=== PATIENT | female | born 1955 | race Caucasian/White ===

== ENCOUNTER 2019-07-13 07:45 | Emergency (ER) | payer OTHER ==
[~2019-07-13] VITALS: Ht 162.6 cm; Wt 57.2 kg
[~2019-07-13 07:45] MED LIST: SYN.1 PO
[2019-07-13 07:47] VITALS: BP 149/83
--- NOTE | 2019-07-13 07:52 | NUR ---
PT. AMBULATED TO BED 12
--- NOTE | 2019-07-13 07:57 | NUR ---
64 Y/O FEMALE C/O HEADACHE SINCE THE MIDDLE OF THE NIGHT 6/10 PAIN. PT TOOK TYLENOL AT 4AM THIS MORNING WITH PAIN RELIEF. PT DENIES ANY TRAUMA. DENIES N/V/D; SKIN IS PINK/WARM/DRY; AAOX4 WITH EVEN AND STEADY GAIT; PT DENIES ANY FEVER, CP, SOB, OR COUGH AT THIS TIME; VSS; PATIENT POSITIONED FOR COMFORT; HOB ELEVATED; BEDRAILS UP X1; BED DOWN AND WHEELS LOCKED. MEDICAL HX:THYROID ISSUE NKA
--- NOTE | 2019-07-13 08:19 | NUR ---
DR HERNANDEZ EVALUATING PT AT BEDSIDE
[2019-07-13] MEDS ORDERED: KETOROLAC 60 MG/2 ML VIAL IM ONE (08:30)
--- NOTE | 2019-07-13 08:35 | NUR ---
PT TAKEN TO CT VIA WHEELCHAIR
--- NOTE | 2019-07-13 08:44 | NUR ---
PT RETURNED FROM CT VIA WHEELCHAIR. PT IS STABLE.VSS. WILL CONTINUE TO MONITOR.
--- NOTE | 2019-07-13 09:34 | NUR ---
PT SITTING UP IN BED WITH FEET ON FLOOR, 1 SIDERAIL UP, BED LOW AND LOCKED,VSS,WILL CONTINUE TO MONITOR.
[2019-07-13 09:41] VITALS: BP 108/77
== END 2019-07-13 09:41 | disposition home or self-care (01) ==
LOC: MED 07:45
DX: R51 Headache (principal); Z79.899 Other long term (current) drug therapy; Z85.9 Personal history of malignant neoplasm, unspecified
CPT/HCPCS: 70450; 96372; 99284; J1885

== ENCOUNTER 2021-07-10 07:01 | Emergency (ER) | payer OTHER ==
[~2021-07-10] VITALS: Ht 154.9 cm; Wt 49.9 kg
[2021-07-10 07:06] VITALS: BP 140/94
--- NOTE | 2021-07-10 07:11 | NUR ---
PT AMBULATED TO ER BED 12 WITH A STEDY GAIT.
--- NOTE | 2021-07-10 07:20 | NUR ---
66 Y/O FEMALE C/O BILATERAL EAR PAIN 1010 DESCRIBES PRESSURE X1WEEK. DENIES DISCHARGE. +TINNITUS. DENIES FEVER/CHILLS. DENIES N/V/D. PMH: DM, THYROID SX: THYROIDECTOMY NKA
--- NOTE | 2021-07-10 07:39 | NUR ---
IS AT PT BEDSIDE FOR FURTHER EVALUATION
[2021-07-10] MEDS: KETOROLAC 30 MG/ML VIAL IM ONE (07:56)
[2021-07-10] MEDS: LORazepam 0.5 MG TAB PO ONE (07:57)
[2021-07-10 08:49] VITALS: BP 121/82
--- NOTE | 2021-07-10 08:50 | NUR ---
PT RESTING IN BED CALM AND COMFORTABLE, VSS, WILL CONTINUE TO MONITOR.
[2021-07-10] MEDS ORDERED: NAPR-54 PO (09:08)
--- NOTE | 2021-07-10 09:25 | NUR ---
Patient discharged with v/s stable. Written and verbal after care instructions ABOUT EARACHE given and explained. Patient alert, oriented and verbalized understanding of instructions. Ambulatory with steady gait. All questions addressed prior to discharge. ID band removed. Patient advised to follow up with PMD. Rx of NAPROXEN given. Patient educated on indication of medication including possible reaction and side effects. Opportunity to ask questions provided and answered.
== END 2021-07-10 09:25 | disposition home or self-care (01) ==
LOC: MED 07:01
DX: H92.03 Otalgia, bilateral (principal); E11.9 Type 2 diabetes mellitus without complications; E07.9 Disorder of thyroid, unspecified; Z79.899 Other long term (current) drug therapy; Z85.038 Personal history of other malignant neoplasm of large intestine
CPT/HCPCS: 96372; 99283; J1885

== ENCOUNTER 2021-08-11 16:24 | Emergency (ER) | payer OTHER ==
[~2021-08-11] VITALS: Ht 160 cm; Wt 47.6 kg
[~2021-08-11 16:24] MED LIST changes: +NAPR-54 PO
[2021-08-11 17:03] VITALS: BP 120/74
--- NOTE | 2021-08-11 18:12 | NUR ---
PATIENT LEFT WITHOUT BEING SEEN BY DR. LYNN. NO FURTHER CARE PROVIDED FOR PATIENT.
== END 2021-08-11 18:12 | disposition left against medical advice (07) ==
LOC: MED 16:24
DX: R53.83 Other fatigue (principal); R53.1 Weakness; J02.9 Acute pharyngitis, unspecified; R63.0 Anorexia; Z53.21 Procedure and treatment not carried out due to patient leaving prior to being seen by health care provider

== ENCOUNTER 2022-04-05 11:21 | Emergency (ER) | payer OTHER ==
[~2022-04-05] VITALS: Ht 165.1 cm; Wt 49.0 kg
[2022-04-05 11:36] VITALS: BP 137/87
[2022-04-05] MEDS ORDERED: MORPHINE SULFATE 4 MG/ML SYR IVP ONE (11:50)
[2022-04-05] MEDS ORDERED: ONDANSETRON 4 MG/2 ML VIAL IVP ONE (11:50)
[2022-04-05] MEDS ORDERED: NACL 0.9% 1,000 ML IV ONE (11:50)
[2022-04-05 12:04] LABS: BASOPHILS # (AUTO) 0.1 K/uL (0.00-0.22); BASOPHILS % (AUTO) 1.2 % (0.0-2.0); EOSINOPHILS # (AUTO) 0.1 K/uL (0-0.4); HEMATOCRIT 39.9 % (36-48); HEMOGLOBIN 13.3 g/dL (12.0-16.0); LYMPHOCYTES # (AUTO) 1.5 K/uL (2.5-16.5); MEAN CORPUSCULAR HEMOGLOBIN 27 pg (27-31); MEAN CORPUSCULAR HGB CONC 33 g/dL (33-37); MEAN CORPUSCULAR VOLUME 82.2 fL (80-94); MONOCYTES # (AUTO) 0.4 K/uL (0.8-1.0); MONOCYTES % (AUTO) 7.3 % (1.7-9.3); NEUTROPHILS # (AUTO) 3.6 K/uL (1.8-7.7); NEUTROPHILS % (AUTO) 62.5 % (42.2-75.2); PLATELET COUNT (AUTO) 143 K/uL (140-450); RED BLOOD CELL COUNT(AUTO) 4.86 MIL/uL (4.20-5.40); RED CELL DISTRIBUTION WIDTH 14.1 % (11.6-13.7); WHITE BLOOD COUNT (AUTO) 5.7 K/uL (4.8-10.8)
--- NOTE | 2022-04-05 12:11 | NUR ---
MOVED TO ER BED 12
[2022-04-05 12:27] LABS: ALBUMIN 3.9 g/dL (3.4-5.0); ANION GAP 12.5 (8-16); ASPARTATE AMINOTRANSFERASE 54 U/L (15-37); CARBON DIOXIDE 29.5 mmol/L (21-32); CHLORIDE 104 mmol/L (98-107); CREATININE 0.8 mg/dL (0.6-1.3); GFR ARICAN-AMERICAN 92 mL/min (>90); GLUCOSE 112 mg/dL (74-106); LIPASE 218 U/L (73-393); SODIUM SERUM 142 mmol/L (136-145); TOTAL BILIRUBIN 0.4 mg/dL (0.0-1.0); UREA NITROGEN, BLOOD 19 mg/dL (7-18)
--- NOTE | 2022-04-05 12:40 | NUR ---
medicated for abd pain and nausea as ordered, o2 sat 98% ra, sr up times
--- NOTE | 2022-04-05 12:58 | NUR ---
still abd pain 12/03, notified
[2022-04-05] MEDS ORDERED: ACET-6951 PO (13:10)
--- NOTE | 2022-04-05 13:11 | NUR ---
examined pt, iasbel be dc home
[2022-04-05 13:25] LABS: APPEARANCE,URINE CLEAR (CLEAR); BILIRUBIN,URINE NEGATIVE (NEGATIVE); BLOOD, URINE 1+ (NEGATIVE); COLOR,URINE YELLOW (YELLOW); LEUKOCYTE ESTERASE ,URINE NEGATIVE (NEGATIVE); NITRITE, URINE NEGATIVE (NEGATIVE); PH,URINE 5.5 (5.0-9.0); UGLUCOSE NEGATIVE (NEGATIVE)
[2022-04-05 13:33] VITALS: BP 117/87
[2022-04-05] MEDS ORDERED: HYDROcodone/APAP 5/325 MG 1 TAB TAB PO ONE (13:40)
[2022-04-05 13:47] LABS: WBC,URINE 0-5 /HPF (0-5)
[2022-04-05 13:48] LABS: OTHER CASTS, URINE None Seen /LPF (None Seen)
--- NOTE | 2022-04-05 14:10 | NUR ---
IV removed, catheter intact and site benign. Applied folded 4x4 gauze and tape to stop bleeding.
[2022-04-05] MEDS ORDERED: ACET-503 PO (14:12)
--- NOTE | 2022-04-05 14:12 | NUR ---
Patient discharged with v/s stable. Written and verbal after care instructions given and explained. Patient alert, oriented and verbalized understanding of instructions. Ambulatory with steady gait. All questions addressed prior to discharge. ID band removed. Patient advised to follow up with PMD. Rx of Acetaminophen with Codeine given. Patient educated on indication of medication including possible reaction and side effects. Opportunity to ask questions provided and answered.
== END 2022-04-05 14:12 | disposition home or self-care (01) ==
LOC: MED 11:21
DX: R10.13 Epigastric pain (principal); E03.9 Hypothyroidism, unspecified; Z85.038 Personal history of other malignant neoplasm of large intestine
CPT/HCPCS: 36415; 80053; 81001; 83605; 83690; 84484; 84703; 85025; 96361; 96374; 96375; 99284; J2270; J2405; J7030

== ENCOUNTER 2022-06-24 10:34 | Emergency (ER) | payer OTHER ==
[~2022-06-24] VITALS: Ht 165.1 cm; Wt 49.9 kg
[~2022-06-24 10:34] MED LIST changes: +ACET-503 PO
[2022-06-24 10:46] VITALS: BP 86/55
[2022-06-24 11:21] VITALS: BP 94/62
--- NOTE | 2022-06-24 11:21 | NUR ---
PATIENT PRESENTS TO ED WITH STOMACH PAIN . PT STATES STOMACH PAIN AND DIARRHEA FOR OVER A WEEK. DENIES N/V ; SKIN IS PINK/WARM/DRY; AAOX4 WITH EVEN AND STEADY GAIT; GRUNTS INSPIRATORY AND EXPIRATORY AND LUNG BASES DIMINISHED; HR EVEN AND REGULAR; PT DENIES ANY FEVER, CP, SOB, OR COUGH AT THIS TIME; PATIENT STATES PAIN OF 10/10 AT THIS TIME; VSS; PATIENT POSITIONED FOR COMFORT; HOB ELEVATED; BEDRAILS UP X2; BED DOWN. ER MD MADE AWARE OF PT STATUS. PMH: HYPERTHYROIDISM MEDS: LOPERAMIDE AND DIPHENOX/ATROPINE NKA
[2022-06-24 11:32] LABS: BASOPHILS % (AUTO) 0.6 % (0.0-2.0); EOSINOPHILS # (AUTO) 0.2 K/uL (0-0.4); EOSINOPHILS % (AUTO) 2.8 % (0.0-4.0); HEMATOCRIT 32.2 % (36-48); HEMOGLOBIN 10.6 g/dL (12.0-16.0); LYMPHOCYTES # (AUTO) 1.1 K/uL (2.5-16.5); LYMPHOCYTES % (AUTO) 14.7 % (20.5-51.1); MEAN CORPUSCULAR HEMOGLOBIN 26 pg (27-31); MEAN CORPUSCULAR HGB CONC 33 g/dL (33-37); MEAN CORPUSCULAR VOLUME 78.8 fL (80-94); MONOCYTES # (AUTO) 1.3 K/uL (0.8-1.0); MONOCYTES % (AUTO) 17.5 % (1.7-9.3); NEUTROPHILS # (AUTO) 4.9 K/uL (1.8-7.7); NEUTROPHILS % (AUTO) 64.4 % (42.2-75.2); PLATELET COUNT (AUTO) 208 K/uL (140-450); RED BLOOD CELL COUNT(AUTO) 4.09 MIL/uL (4.20-5.40); RED CELL DISTRIBUTION WIDTH 13.5 % (11.6-13.7); WHITE BLOOD COUNT (AUTO) 7.6 K/uL (4.8-10.8)
[2022-06-24 11:36] LABS: APPEARANCE,URINE CLEAR (CLEAR); BILIRUBIN,URINE NEGATIVE (NEGATIVE); BLOOD, URINE TRACE-I (NEGATIVE); COLOR,URINE YELLOW (YELLOW); LEUKOCYTE ESTERASE ,URINE NEGATIVE (NEGATIVE); NITRITE, URINE NEGATIVE (NEGATIVE); UGLUCOSE NEGATIVE (NEGATIVE)
[2022-06-24 11:50] LABS: RBC,URINE NONE SEEN /HPF (0-5); WBC,URINE 0-5 /HPF (0-5)
[2022-06-24 11:58] LABS: ALBUMIN 3.5 g/dL (3.4-5.0); ANION GAP 7.8 (8-16); CARBON DIOXIDE 35.1 mmol/L (21-32); CREATININE 0.8 mg/dL (0.6-1.3); POTASSIUM 4.9 mmol/L (3.5-5.1); TOTAL BILIRUBIN 0.3 mg/dL (0.0-1.0)
[2022-06-24] MEDS: KETOROLAC 15 MG/ML VIAL IVP ONE (12:09)
[2022-06-24] MEDS ORDERED: CIPR500T4 PO (12:55)
[2022-06-24] MEDS ORDERED: ACET-10509 PO (13:00)
--- NOTE | 2022-06-24 13:28 | NUR ---
Patient discharged with v/s stable. Written and verbal after care instructions given and explained. Patient alert, oriented and verbalized understanding of instructions. Wheel Chair Assisted with steady gait. All questions addressed prior to discharge. ID band removed. Patient advised to follow up with PMD. Rx of TYLENOL AND CIPROFLOXACIN TABLETS given. Patient educated on indication of medication including possible reaction and side effects. Opportunity to ask questions provided and answered.
== END 2022-06-24 13:28 | disposition home or self-care (01) ==
LOC: MED 10:34
DX: K52.9 Noninfective gastroenteritis and colitis, unspecified (principal); Z86.39 Personal history of other endocrine, nutritional and metabolic disease; Z85.038 Personal history of other malignant neoplasm of large intestine; Z79.899 Other long term (current) drug therapy; Z79.2 Long term (current) use of antibiotics; Z79.1 Long term (current) use of non-steroidal anti-inflammatories (NSAID)
CPT/HCPCS: 36415; 74176; 80053; 81001; 83690; 85025; 96374; 99285; J1885

== ENCOUNTER 2023-06-01 09:31 | Emergency (ER) | payer OTHER ==
[~2023-06-01] VITALS: Ht 165.1 cm; Wt 77.1 kg
[~2023-06-01 09:31] MED LIST changes: +ACET-10509 PO; +CIPR500T4 PO
[2023-06-01 09:42] VITALS: BP 160/90; PULSE 102; RESP 18; TEMP 97.7; O2SAT 96
[2023-06-01] MEDS: HYDROcodone/APAP 5/325 MG 1 TAB TAB PO ONE (11:15)
[2023-06-01] MEDS ORDERED: DICL100G32 TP (11:52)
[2023-06-01] MEDS ORDERED: CYCL-711 PO (11:52)
[2023-06-01] MEDS ORDERED: IBUP-2213 PO (11:52)
[2023-06-01 11:58] VITALS: BP 132/88; PULSE 8; RESP 16; TEMP 98; O2SAT 97
== END 2023-06-01 11:58 | disposition home or self-care (01) ==
LOC: MED 09:31
DX: M25.511 Pain in right shoulder (principal); R07.89 Other chest pain; E03.9 Hypothyroidism, unspecified; Z79.899 Other long term (current) drug therapy; V49.88XA Car occupant (driver) (passenger) injured in other specified transport accidents, initial encounter; Y93.89 Activity, other specified; Y92.89 Other specified places as the place of occurrence of the external cause; Y99.8 Other external cause status
CPT/HCPCS: 71045; 71120; 73030; 93005; 99284